=== PATIENT | female | born 1950 | race Caucasian/White ===

== ENCOUNTER 2016-07-10 05:21 | Day surgery (SDC) | payer BC ==
[2016-07-09 09:19] LABS: HEMATOCRIT 37.2 % (36.0-48.0); HEMOGLOBIN 12.3 g/dL (12-16); MCH 28.3 pg (26.0-34.0); MCHC 33.1 g/dL (31.0-37.0); MCV 85.7 fL (80.0-100.0); RBC 4.34 10x6/uL (4.00-5.40); RDW 13.5 % (11.5-14.5); WBC 3.5 10x3/uL (4.8-10.8)
[2016-07-09 10:40] LABS: MEAN PLATELET VOLUME 12.65 fL (7.4-10.4)
[~2016-07-10] VITALS: Ht 167.6 cm; Wt 68.0 kg
[~2016-07-10 05:21] MED LIST: DEXILANT60 MG PO; ELMIRON100 MG PO; NORCO 10/325 TA1 TA1 PO; SEPTRA DS TABLE1 TAB PO; XANAX0.5 MG PO
[2016-07-10 10:57] VITALS: BP 153/96; Ht 167.6 cm; Wt 68.0 kg
[2016-07-10] MEDS ORDERED: HYDROCODONE-APA1 TAB PO (13:14)
--- NOTE | 2016-07-10 13:32 | NUR ---
CARE TO CHERYL CONNOLLY RN @[id number]
--- NOTE | 2016-07-10 13:36 | NUR ---
VANCOMYCIN 1 GRAM IN 250CC OF NORMAL SALINE INFUSING ON ADMIT
--- NOTE | 2016-07-10 14:47 | NUR ---
1435 DISCHARGE INSTRUCTIONS REVIEWED WITH PATIENT; PENDELUM EXERCISES DEMONSTRATED; VERBALIZED UNDERSTAND; TO B/R; VOIDED MOD AMT; IV DC'D
--- NOTE | 2016-07-10 17:40 | OP ---
PATIENT NAME: HUSSEIN YAO MEDICAL RECORD: [id number] :52 LOCATION:[facility] ADMISSION DATE: SURGEON: ALICIA CLEMENTS, MONICA SINGH DATE OF OPERATION: 07/10/2016 PREOPERATIVE DIAGNOSES: 1. Impingement syndrome of the right shoulder. 2. Acromioclavicular arthritis of the right shoulder. POSTOPERATIVE DIAGNOSES: 1. Impingement syndrome of the right shoulder. 2. Acromioclavicular arthritis of the right shoulder. PROCEDURES: 1. Arthroscopic distal clavicle excision done through separate incision -- 1 cm. 2. Arthroscopic subacromial decompression, acromioplasty and bursectomy. SURGEON: Monica Vargas MD ANESTHESIA: General. INTRAOPERATIVE COMPLICATIONS: None. SUMMARY OF PATHOLOGIC FINDINGS: The patient was indeed found to have excoriation of the coracoacromial ligament, superficial fraying of the rotator cuff and grade IV chondromalacia of the acromioclavicular joint. OPERATIVE SUMMARY IN DETAIL: After obtaining the appropriate preoperative orthopedic surgery consent as well as anesthetic consultation, evaluation and clearance, the patient was brought to the operating room and placed on the operating table in supine position. After adequate general laryngeal mask airway was administered, the patient was placed in a left lateral decubitus position. All pressure points were well padded to include down leg peroneal nerve pad as well as axillary roll. The patient was held firmly to the operating table using the vacuum pack suction system. Right upper extremity and shoulder were prepped and draped in routine sterile fashion. The arm was held in the Arthrex traction boom at 30 degrees of forward flexion, 30 degrees of abduction, 10 pounds of traction laterally. Arthroscopy was established in the glenohumeral joint from a posterior portal. Anterior portal was established in the anterior safe interval. Diagnostic arthroscopy revealed the patient to have relatively pristine glenohumeral joint, mild labral tearing was noted. A slight debridement was done here. Attention was then turned to the subacromial space. While in the subacromial space, [place] tissue ablation system was utilized to denude the undersurface of the acromion of all soft tissue elements and released the coracoacromial ligament. A 5-0 barrel bur was then used to perform acromioplasty at the level of acromioclavicular joint. Through a separate arthroscopic anterior incision, a 5-0 barrel bur was used to perform a distal clavicle excision of 1 cm. Having completed this, the residual bursa was taken down ____. Following this, arthroscopy portals were closed in routine interrupted fashion using 4-0 Prolene. Sterile dressings were applied. The patient was awakened, taken to recovery room in stable condition. All final needle and sponge counts were correct. TRANSINT:[id number] Voice Confirmation ID: [id number] DOCUMENT ID: [id number] OPERATIVE REPORT [id number] HUSSEIN YAO MD, MONICA SINGH at 1740 CC: [id number] DICTATION DATE: 07/10/16 1312 COMPUTER LANGUAGE CODER: 07/10/16 1544 [facility] 07/10/16 [facility] [address] [place] [address]
== END 2016-07-10 14:40 | disposition home or self-care (01) ==
LOC: D.OPS 05:21 → D.PAN 10:30 → D.OPS 11:10 → D.PAN 11:15 → D.OPS 11:15 → D.PAN 13:00 → D.OPS 13:00
PROVIDERS: Anesthesiology
DX: M75.41 Impingement syndrome of right shoulder (principal); M13.811 Other specified arthritis, right shoulder

== ENCOUNTER 2016-09-01 08:12 | Day surgery (SDC) | payer BC ==
[~2016-09-01] VITALS: Ht 167.6 cm; Wt 68.0 kg
[~2016-09-01 08:12] MED LIST changes: +HYDROCODONE-APA1 TAB PO
[2016-09-01 09:03] VITALS: BP 130/77; Ht 167.6 cm; Wt 68.0 kg
[2016-09-01] MEDS ORDERED: NEXIUM20 MG PO (09:08)
[2016-09-01 09:29] LABS: HEMATOCRIT 39.1 % (36.0-48.0); HEMOGLOBIN 12.7 g/dL (12-16); MCH 28.5 pg (26.0-34.0); MCHC 32.5 g/dL (31.0-37.0); MCV 87.9 fL (80.0-100.0); MEAN PLATELET VOLUME 11.3 fL (7.4-10.4); RBC 4.45 10x6/uL (4.00-5.40); RDW 13.1 % (11.5-14.5); WBC 4.1 10x3/uL (4.8-10.8)
[2016-09-01] MEDS ORDERED: HYDROCODONE-APA1 TAB PO (12:40)
== END 2016-09-01 14:30 | disposition home or self-care (01) ==
LOC: D.OPS 08:12 → D.PAN 10:30 → D.OPS 10:30
PROVIDERS: Anesthesiology
DX: M75.01 Adhesive capsulitis of right shoulder (principal); M25.511 Pain in right shoulder; K21.9 Gastro-esophageal reflux disease without esophagitis; Z01.812 Encounter for preprocedural laboratory examination

== ENCOUNTER → 2016-10-30 09:46 | Outpatient (CLI) | payer BC ==
[~2016-10-30 09:46] MED LIST changes: +NEXIUM20 MG PO
== END | disposition home or self-care (01) ==
LOC: D.MRI 09:00 → D.RAD 09:46 → D.MRI 11:00
DX: M75.121 Complete rotator cuff tear or rupture of right shoulder, not specified as traumatic (principal)

== ENCOUNTER → 2017-11-24 15:46 | Outpatient (CLI) | payer BC | END | disposition home or self-care (01) | LOC: D.MAMMO 11-23 10:45 | DX: Z12.31 Encounter for screening mammogram for malignant neoplasm of breast (principal) ==

== ENCOUNTER → 2018-01-13 08:10 | Outpatient (CLI) | payer MEDICARE, OTHER | END | disposition home or self-care (01) | LOC: D.RAD 08:10 | DX: K21.9 Gastro-esophageal reflux disease without esophagitis (principal) ==

== ENCOUNTER 2018-03-01 07:38 | Emergency (ER) | payer MEDICARE, OTHER ==
[2018-03-01 07:44] VITALS: Ht 167.6 cm
[2018-03-01 08:42] LABS: BASOPHILS 0.3 % (0-2); EOSINOPHILS 0.6 % (0-7); HEMATOCRIT 38.3 % (36.0-48.0); HEMOGLOBIN 12.8 g/dL (12-16); LYMPHOCYTES 36.2 % (15-50); MCH 28.4 pg (26.0-34.0); MCHC 33.4 g/dL (31.0-37.0); MCV 84.9 fL (80.0-100.0); MEAN PLATELET VOLUME 10.7 fL (7.4-10.4); MONOCYTES 7.6 % (2-11); NEUTROPHILS 55.3 % (40-80); PLATELET COUNT 245 10x3/uL (130-400); RBC 4.51 10x6/uL (4.00-5.40); RDW 12.8 % (11.5-14.5); WBC 3.6 10x3/uL (4.8-10.8)
[2018-03-01 08:44] LABS: ALBUMIN 3.5 g/dL (3.4-5.0); ANION GAP 12.3 mmol/L (8-16); BILIRUBIN - TOTAL 0.66 mg/dL (0.2-1.3); CALCIUM 9.3 mg/dL (8.5-10.1); CARBON DIOXIDE 28.4 mmol/L (21.0-32.0); CREATININE - SERUM 0.9 mg/dL (0.6-1.3); POTASSIUM - SERUM 3.7 mmol/L (3.5-5.1); PROTEIN - SERUM 7.5 g/dL (6.4-8.2)
[2018-03-01 10:37] VITALS: BP 157/95
== END 2018-03-01 10:38 | disposition home or self-care (01) ==
LOC: D.ER 07:38
PROVIDERS: Family Medicine
DX: K29.70 Gastritis, unspecified, without bleeding (principal); K20.9 Esophagitis, unspecified; J02.9 Acute pharyngitis, unspecified

== ENCOUNTER 2018-03-25 08:19 | Outpatient (CLI) | payer MEDICARE, OTHER | END 2018-03-25 09:15 | disposition home or self-care (01) | LOC: D.OPS 08:19 | DX: K21.9 Gastro-esophageal reflux disease without esophagitis (principal); Z01.812 Encounter for preprocedural laboratory examination ==

== ENCOUNTER 2018-04-21 07:15 | Inpatient (IN) | payer MEDICARE, OTHER ==
[2018-04-20 08:44] LABS: HEMATOCRIT 39.4 % (36.0-48.0); HEMOGLOBIN 13.1 g/dL (12-16); MCH 27.9 pg (26.0-34.0); MCHC 33.2 g/dL (31.0-37.0); MCV 83.8 fL (80.0-100.0); MEAN PLATELET VOLUME 12.5 fL (7.4-10.4); RBC 4.7 10x6/uL (4.00-5.40); RDW 13.1 % (11.5-14.5); WBC 3.3 10x3/uL (4.8-10.8)
[~2018-04-21] VITALS: Ht 167.6 cm; Wt 64.5 kg
[2018-04-21] VITALS (11 sets, daily range): BP systolic 102–142; BP diastolic 48–68; Ht 167.6 cm; Wt 64.5 kg
[~2018-04-21 07:15] MED LIST changes: +CYCLOBENZAPRINE10 MG PO; +MAGIC; +PEPCID40 MG PO; +PROTONIX40 MG PO
--- NOTE | 2018-04-21 11:18 | NUR ---
STAT-LOCK FOR URINARY CATHETER PLACED TO RT THICH IN PACU BY SHAYE BARRIENTOS RN
--- NOTE | 2018-04-21 21:50 | NUR ---
SUPINE IN BED, FAMILY AT BEDSIDE. A&O X 4. PT ASK WHY SHE HAS TO HAVE A WOOD. PT REPORTS SHE HAD NO ISSUES VOIDING BEFORE HER SURGERY. WOOD WAS PLACED PRIOR TO SURGERY, NOT REMOVED AFTERWARDS. NO REASON IN NOTES TO WHY, CAN SEE NO REASON TO LEAVE IT IN. PT HOPES TO BE DISCHARGED IN THE MORNING. WOOD DC'D, XAVIER CARE PERFORMED BY PT. WILL MONITOR FOR VOID.
--- NOTE | 2018-04-21 23:07 | NUR ---
PT REPORTS SHE HAS VOIDED X 2 SINCE WOOD CATHETER REMOVAL.
[2018-04-22 00:59] VITALS: BP 130/63
--- NOTE | 2018-04-22 02:49 | NUR ---
PT LYING IN BED RESTING WITHOUT NEEDS, NO SIGNS OF DISTRESS. CONCUR W/ [employer] EQUIPMENT ASSESSMENT. CL IN REACH, WILL CONTINUE TO MONITOR
[2018-04-22 06:52] LABS: BASOPHILS 0 % (0-2); EOSINOPHILS 0 % (0-7); HEMATOCRIT 33.4 % (36.0-48.0); LYMPHOCYTES 21.3 % (15-50); MCH 27.8 pg (26.0-34.0); MCHC 32.9 g/dL (31.0-37.0); MCV 84.6 fL (80.0-100.0); MEAN PLATELET VOLUME 11.4 fL (7.4-10.4); MONOCYTES 9.8 % (2-11); NEUTROPHILS 68.9 % (40-80); RBC 3.95 10x6/uL (4.00-5.40); RDW 13.4 % (11.5-14.5)
[2018-04-22 06:57] LABS: ALBUMIN 3.1 g/dL (3.4-5.0); ANION GAP 11.9 mmol/L (8-16); BILIRUBIN - TOTAL 0.75 mg/dL (0.2-1.3); CALCIUM 8.8 mg/dL (8.5-10.1); CARBON DIOXIDE 29.5 mmol/L (21.0-32.0); CREATININE - SERUM 0.9 mg/dL (0.6-1.3); POTASSIUM - SERUM 4.4 mmol/L (3.5-5.1); PROTEIN - SERUM 5.8 g/dL (6.4-8.2)
--- NOTE | 2018-04-22 06:57 | NUR ---
PT UP, WALKING IN HALLS INDEPENDENTLY, ACCOMPANIED BY FAMILY MEMBER. DENIES NEEDS, ASSISTANCE AT THIS TIME.
[2018-04-22 07:10] LABS: PLATELET COUNT 180 10x3/uL (130-400); WBC 6.2 10x3/uL (4.8-10.8)
[2018-04-22] MEDS ORDERED: HYDROCODON-ACE1 EAC7 PO (08:06)
[2018-04-22] MEDS ORDERED: ZOFRAN ODT4 MG/UDTAB PO (08:07)
--- NOTE | 2018-04-22 08:38 | NUR ---
MARIS NOTE-RETURNED FROM XRAY WITH NO COMPLAINTS AT PRESENT EXCEPT FOR SHOULDER DISCOMFORT. EXPLAINED THIS IS FROM THE GAS FROM SURG. FOR DISCHARGE LATER THIS SHFIT. CALL LIGHT IN REACH
[2018-04-22 08:49] VITALS: BP 134/65
== END 2018-04-22 15:12 | disposition home or self-care (01) | DRG 328 ==
LOC: D.MS 07:15 → D.OPS 07:15 → D.MS 10:44 → D.OPS 11:14 → D.MS 11:14 → D.OPS 04-22 15:12 → D.MS 04-22 15:12
PROVIDERS: Anesthesiology; ADMIT Surgery
PROC: 0BQT4ZZ Repair Diaphragm, Percutaneous Endoscopic Approach (ICD-10-PCS; principal; 2018-04-21 09:30)
PROC: 0DV Gastrointestinal System, Restriction (ICD-10-PCS; 2018-04-21 09:30)
DX: K44.9 Diaphragmatic hernia without obstruction or gangrene (principal); K21.9 Gastro-esophageal reflux disease without esophagitis

== ENCOUNTER 2018-06-17 09:47 | Emergency (ER) | payer MEDICARE, OTHER ==
[~2018-06-17] VITALS: Ht 167.6 cm; Wt 62.3 kg
[~2018-06-17 09:47] MED LIST changes: +HYDROCODON-ACE1 EAC7 PO; +ZOFRAN ODT4 MG/UDTAB PO
[2018-06-17 09:50] VITALS: Ht 167.6 cm; Wt 62.3 kg
[2018-06-17 13:30] VITALS: BP 114/62
== END 2018-06-17 13:31 | disposition home or self-care (01) ==
LOC: D.ER 09:47
DX: R13.10 Dysphagia, unspecified (principal); Z98.890 Other specified postprocedural states

== ENCOUNTER 2018-06-30 06:00 | Day surgery (SDC) | payer MEDICARE, OTHER ==
[~2018-06-30] VITALS: Ht 167.6 cm; Wt 62.7 kg
[2018-06-30 06:20] LABS: HEMATOCRIT 38.5 % (36.0-48.0); HEMOGLOBIN 12.6 g/dL (12-16); MCH 28.3 pg (26.0-34.0); MCHC 32.7 g/dL (31.0-37.0); MCV 86.3 fL (80.0-100.0); MEAN PLATELET VOLUME 11.2 fL (7.4-10.4); RBC 4.46 10x6/uL (4.00-5.40); RDW 14.1 % (11.5-14.5); WBC 3.9 10x3/uL (4.8-10.8)
[2018-06-30 07:13] VITALS: Ht 167.6 cm; Wt 62.7 kg
--- NOTE | 2018-06-30 10:31 | NUR ---
RECIEVED FULL LIQ DIET.
--- NOTE | 2018-06-30 11:12 | NUR ---
IV REMOVED AND PT GETTING DRESSED.
== END 2018-06-30 11:13 | disposition home or self-care (01) ==
LOC: D.OPS 06:00
PROVIDERS: Anesthesiology; ATTEND Surgery
DX: R13.10 Dysphagia, unspecified (principal); Z01.812 Encounter for preprocedural laboratory examination

== ENCOUNTER 2018-08-18 06:27 | Day surgery (SDC) | payer MEDICARE, OTHER ==
[~2018-08-18] VITALS: Ht 167.6 cm; Wt 59.5 kg
[2018-08-18 07:04] LABS: HEMATOCRIT 38.6 % (36.0-48.0); HEMOGLOBIN 12.6 g/dL (12-16); MCH 28.1 pg (26.0-34.0); MCHC 32.6 g/dL (31.0-37.0); MCV 86.2 fL (80.0-100.0); MEAN PLATELET VOLUME 11.6 fL (7.4-10.4); RBC 4.48 10x6/uL (4.00-5.40); RDW 13.6 % (11.5-14.5); WBC 3.5 10x3/uL (4.8-10.8)
[2018-08-18 07:36] VITALS: BP 126/74; Ht 167.6 cm; Wt 59.5 kg
--- NOTE | 2018-08-18 11:09 | OP ---
PATIENT NAME: HUSSEIN YAO MEDICAL RECORD: [id number] :52 LOCATION:[facility] ADMISSION DATE: SURGEON: MONICA CHOWDHURY MD DATE OF OPERATION: 08/18/2018 SURGEON: Monica Chowdhury MD PREOPERATIVE DIAGNOSIS: Dysphagia. POSTOPERATIVE DIAGNOSIS: Dysphagia. PROCEDURE PERFORMED: EGD with balloon dilatation and Kenalog injection. ANESTHESIA: Total intravenous anesthesia. COMPLICATIONS: None. SPECIMENS: None. OPERATIVE COURSE: After consent was obtained, the patient was taken to the endoscopy suite. A bite block was placed. Hurricaine [place] was administered. The patient was placed in left lateral decubitus position. A timeout was then taken to confirm the correct patient and procedure. Next, the gastroscope was passed through the bite block and into the posterior oropharynx under direct endoscopic vision, was passed to the esophagus. The GE junction was easily traversed with the gastroscope. The scope was advanced in the stomach and retroflexed. At this time, a 13, 14, and 15 mm dilating balloon was passed through the working channel of the scope. The scope was withdrawn at the GE junction. GE junction was dilated to 15 mm and held for 3 minutes. There was minimal resistance noted. At this time, a 16, 17, 18 balloon was then placed. The GE junction was dilated to 18 mm and held for 3 minutes. After completion of the dilation, there was no resultant mucosal trauma. At this time, 80 mg of Kenalog were injected along 4 separate quadrants of the GE junction. Again, the area was then copiously irrigated and suctioned. No evidence of mucosal trauma or bleeding. The scope was passed through the GE junction into the stomach. The stomach was desufflated. The esophagus and GE junction were examined on withdrawal of the scope with no abnormalities identified. At the end of the case, all needle and instrument counts were correct. No complications occurred. The patient was transferred to the recovery room in satisfactory condition. TRANSINT:[id number] Voice Confirmation ID: [id number] DOCUMENT ID: [id number] MONICA CHOWDHURY MD at 1109 CC: [id number] DICTATION DATE: 08/18/18 0944 PROCESS IMPROVEMENT ANALYST: 08/18/18 1035 [facility] [address] [place] [address]
== END 2018-08-18 11:00 | disposition home or self-care (01) ==
LOC: D.OPS 06:27
PROVIDERS: Anesthesiology; ATTEND Surgery
DX: R13.10 Dysphagia, unspecified (principal); Z01.812 Encounter for preprocedural laboratory examination

== ENCOUNTER → 2018-09-23 09:03 | Outpatient (CLI) | payer MEDICARE, OTHER ==
[2018-08-18 07:36] VITALS: BMI 21.1
== END | disposition home or self-care (01) ==
LOC: D.RAD 09:03
PROVIDERS: ATTEND Surgery
DX: K21.9 Gastro-esophageal reflux disease without esophagitis (principal)

== ENCOUNTER → 2018-09-28 10:41 | Outpatient (CLI) | payer MEDICARE, OTHER ==
[2018-08-18 07:36] VITALS: BMI 21.1
== END | disposition home or self-care (01) ==
LOC: D.NM 10:41
PROVIDERS: ATTEND Surgery
DX: K21.9 Gastro-esophageal reflux disease without esophagitis (principal)

== ENCOUNTER 2018-11-08 06:10 | Inpatient (IN) | payer MEDICARE ==
[2018-11-05 12:12] LABS: HEMOGLOBIN 12.1 g/dL (12-16); MCH 28.2 pg (26.0-34.0); MCHC 33.6 g/dL (31.0-37.0); MCV 83.9 fL (80.0-100.0); MEAN PLATELET VOLUME 11.1 fL (7.4-10.4); RBC 4.29 10x6/uL (4.00-5.40); RDW 13.7 % (11.5-14.5); WBC 3.3 10x3/uL (4.8-10.8)
[~2018-11-08] VITALS: Ht 167.6 cm; Wt 58.6 kg
[2018-11-08] VITALS (12 sets, daily range): BP systolic 106–123; BP diastolic 56–72; Ht 167.6 cm; Wt 58.6 kg
--- NOTE | 2018-11-08 19:22 | NUR ---
IN BED WITH FAMILY AT BEDSIDE, ABLE TO VOICE ALL NEEDS. SHOWS NO S/S OF ANY ACUTE DISTRESS. IV TO RIGHT FOREARM WITH LR INFUSING PER ORDERS. WILL NOTE ANY CHANGE.
--- NOTE | 2018-11-08 22:11 | NUR ---
WENT IN TO DO SCHEDULED BREATHING TREATMENT AND PATIENT REFUSED. SHE STATED THAT "IT MADE HER HEART RACE AND KEPT HER AWAKE ALL NIGHT". EDUCATED THAT IF SHE FELT SHORT OF BREATH OR FELT THOUGH SHE NEEDED IT TO GIVE ME A CALL. PATIENT'S O2 SAT ON ROOM AIR WAS 96%
[2018-11-09] VITALS: BP 111/54
--- NOTE | 2018-11-09 05:24 | NUR ---
I have reviewed this patient and I concur with the Shift Assessment completed by the Licensed Practical Nurse today this shift.
[2018-11-09 05:25] VITALS: BP 113/55
[2018-11-09 07:00] LABS: BASOPHILS 0 % (0-2); EOSINOPHILS 0.5 % (0-7); HEMATOCRIT 29.6 % (36.0-48.0); HEMOGLOBIN 9.9 g/dL (12-16); IMMATURE GRANULOCYTES 0.2 % (0-5); LYMPHOCYTES 24.1 % (15-50); MCHC 33.4 g/dL (31.0-37.0); MCV 83.6 fL (80.0-100.0); MONOCYTES 7.3 % (2-11); NEUTROPHILS 67.9 % (40-80); PLATELET COUNT 163 10x3/uL (130-400); RBC 3.54 10x6/uL (4.00-5.40); WBC 5.7 10x3/uL (4.8-10.8)
[2018-11-09 08:01] LABS: ALBUMIN 2.6 g/dL (3.4-5.0); ALKALINE PHOSPHATASE 45 U/L (46-116); ALT (SGPT) 120 U/L (10-68); BILIRUBIN - TOTAL 0.75 mg/dL (0.2-1.3); CALC OSMOLALITY 274 mosm/kg (275-300); CALCIUM 8.2 mg/dL (8.5-10.1); CHLORIDE - SERUM 108 mmol/L (98-107); CREATININE - SERUM 0.7 mg/dL (0.6-1.3); GLUCOSE 83 mg/dL (74-106); POTASSIUM - SERUM 4.3 mmol/L (3.5-5.1); PROTEIN - SERUM 4.8 g/dL (6.4-8.2); SODIUM 139 mmol/L (136-145); UREA NITROGEN 8 mg/dL (7-18); eGFR NON AFRICAN AMERICAN 89 mL/min (90-120)
[2018-11-09 08:59] VITALS: BP 106/61
--- NOTE | 2018-11-09 10:41 | NUR ---
DC HOME AT THIS TIME VOICE UNDERSTANDING OF DC INSTRUCTION. IV DC WITH TIP INTACT. STABLE CONDITION UPON DEPARTURE.
== END 2018-11-09 10:44 | disposition home or self-care (01) | DRG 328 ==
LOC: D.OPS 06:10 → D.PAN 08:15 → D.OPS 08:50 → D.MS 11:07 → D.OPS 11:08 → D.MS 11:08
PROVIDERS: Anesthesiology; ADMIT Surgery; ATTEND Surgery
PROC: 0DP Gastrointestinal System, Removal (ICD-10-PCS; 2018-11-08)
PROC: 0DV44ZZ Restriction of Esophagogastric Junction, Percutaneous Endoscopic Approach (ICD-10-PCS; principal; 2018-11-08 08:15)
DX: K21.0 Gastro-esophageal reflux disease with esophagitis (principal); R13.10 Dysphagia, unspecified; K44.9 Diaphragmatic hernia without obstruction or gangrene; K29.70 Gastritis, unspecified, without bleeding

== ENCOUNTER → 2020-01-10 22:20 | Outpatient (CLI) | payer MEDICARE, OTHER ==
[2018-11-08 13:42] VITALS: BMI 20.8
== END | disposition home or self-care (01) ==
LOC: D.MAMMO 08:30
PROVIDERS: ATTEND Family Medicine
DX: Z12.31 Encounter for screening mammogram for malignant neoplasm of breast (principal)